=== PATIENT | male | born 1980 | race Caucasian/White ===

== ENCOUNTER 2023-11-26 13:00 | Emergency (ER) | payer OTHER, SELFPAY ==
[2023-11-26 13:24] VITALS: BP 141/88; PULSE 106; RESP 18; TEMP 36.3; O2SAT 96; BMI 31.6
--- NOTE | 2023-11-26 15:56 | ED.NURSE ---
Patient stating his head hurt and feeling light headed in the waiting room. Given 1000 mg Tylenol. Vital signs 140/89, saturation 100%, heart rate 90.
--- NOTE | 2023-11-26 17:00 | PC.NURSE ---
Patient upon discharge was very agitated, stating the incision made on his head was on big enough and that it needs to be cut open. Quality Control Head spoke with the MD and MD stated there was no further treatment needed and making another incision would not be indicated. Patient began swearing and arguing there was a softball sized lump on his head that needed to be taken care of. Quality Control Head explained discharge to the patient and patient refused to sign acknowledgment.
--- NOTE | 2023-11-26 17:59 | ED.GENADULT ---
HPI - General Adult General Date Seen: 11/26/23 Chief complaint: Skin/Abscess/Foreign Body Stated complaint: Abscess in back of head Time Seen by Provider: 11/26/23 16:11 Source: patient Mode of arrival: ambulatory Limitations: no limitations History of Present Illness HPI narrative: Patient is a 43-year-old male with underlying diabetes who reports an area of swelling and pain on the back of his scalp. He said it drained a little bit the other day but since then has not been draining and has become more painful. He does have a history of a similar lesion on his leg, denies history of MRSA. He has not had systemic symptoms such as fevers or chills. Related Data Home Medications Medication Instructions Recorded Confirmed haloperidol 5 mg tablet 2.5 mg PO BID 11/26/23 11/26/23 olanzapine 20 mg tablet 20 mg PO QPM 11/26/23 11/26/23 Previous Rx's Medication Instructions Recorded cephalexin 500 mg capsule 500 mg PO QID #20 caps 11/26/23 Allergies Allergy/AdvReac Type Severity Reaction Status Date / Time animal dander Allergy Unknown Verified 11/26/23 13:22 Review of Systems Status of ROS: Reports: 6 or more systems reviewed and unremarkable except as noted in History and below PFSH [facility] Social History Smoking Status: Current every day smoker Do you use any of these nicotine containing products: E-Cigarettes How often do you have a drink containing alcohol: never How often do you have six or more drinks on one occasion: Never AUDIT-C Alcohol total score: 0 Non-prescribed substance use: denies use service: No Exam Narrative: Exam Narrative: Vital signs reviewed In general, alert, nontoxic male. He was vaping when I stepped into the room. Head: Normocephalic. On the lower posterior scalp there is an area of erythema and induration. No clear fluctuance. No significant adenopathy. Skin: Warm dry well perfused. Otherwise intact. Const: Vital Signs, click to edit/add: Vital Signs - 24 hr 11/26/23 13:24 Temperature 97.3 F L Pulse Rate [Pulse Oximeter] 106 H Respiratory Rate 18 Blood Pressure [Ri ght Upper Arm] 141/88 H Pulse Oximetry 96 Oxygen Delivery Me thod Room Air Documenting provider has reviewed patient's vital signs: yes Course Course ED Course: Given absence of fluctuance I did recommend that I 1st explore with a needle to make sure that there was underlying purulence. Procedure note: A small amount of lidocaine with epinephrine was infused and the skin and then an 18 gauge needle was inserted, I did get a tiny bit of purulent material back in so I elected to do a larger incision. I made about a 1.5 cm incision over the area of erythema and was able to express a small amount of additional purulent material. Broke up loculations as well. Discussed with him that routine packing of wounds is no longer generally recommended. For now I have recommended that we start him on Keflex, I did send wound culture and if this were to grow MRSA may need to switch the antibiotic. Keep wound clean and dry, discussed that we want this to stay open for the next few days, I would recommend showering a couple of times a day and rinsing that area out. If he has worsening swelling, redness, pain or new symptoms such as fever return to the ER. Otherwise recommend primary care follow-up later this week for a recheck. Vital Signs Vital signs: Initial Vital Signs Temperature 97.3 F L 11/26/23 13:24 Temperature Source Temporal Artery Scan 11/26/23 13:24 Pulse Rate 106 H 11/26/23 13:24 Respiratory Rate 18 11/26/23 13:24 Blood Pressure 141/88 H 11/26/23 13:24 Blood Pressure Mean 105 11/26/23 13:24 Blood Pressure Position Sitting 11/26/23 13:24 Pulse Oximetry 96 11/26/23 13:24 Oxygen Delivery Method Room Air 11/26/23 13:24 Vital Signs Temperature 97.3 F L 11/26/23 13:24 Pulse Rate 106 H 11/26/23 13:24 Respiratory Rate 18 11/26/23 13:24 Blood Pressure 141/88 H 11/26/23 13:24 Pulse Oximetry 96 11/26/23 13:24 Oxygen Delivery Method Room Air 11/26/23 13:24 Temperature 97.3 F L 11/26/23 13:24 Pulse Rate 106 H 11/26/23 13:24 Respiratory Rate 18 11/26/23 13:24 Blood Pressure 141/88 H 11/26/23 13:24 Pulse Oximetry 96 11/26/23 13:24 Oxygen Delivery Method Room Air 11/26/23 13:24 Discharge Plan Discharge Clinical Impression: Abscess of skin or subcutaneous tissue Patient Disposition: Home, Self-Care Condition: Improved Instructions: Abscess Incision and Drainage (DC) Additional Instructions: Antibiotic as prescribed. Ibuprofen or Tylenol as needed for pain. Recheck with your clinic later this week if not gradually improving. Return for significant worsening swelling, new symptoms such as fever, or other new concerns. Prescriptions: New cephalexin 500 mg capsule 500 mg PO QID Qty: 20 0RF No Action haloperidol 5 mg tablet 2.5 mg PO BID olanzapine 20 mg tablet 20 mg PO QPM Stand Alone Forms: [employer] Info Instructions
== END 2023-11-26 17:00 | disposition home or self-care (01) ==
LOC: ED 16:34
PROVIDERS: Emergency Provider Emergency Medicine
DX: L02.811 Cutaneous abscess of head [any part, except face] (principal)
CPT/HCPCS: 10060; 87070; 87186; 99283; 99284